=== PATIENT | male | born 1960 | race Hispanic/Latino ===

== ENCOUNTER 2017-07-30 06:14 | Day surgery (SDC) | payer BC ==
[2017-07-25 11:56] VITALS: BMI 26.9
[2017-07-30] MEDS ORDERED: Lidocaine 2% Inj (20ml) ONE (06:46)
[2017-07-30] MEDS ORDERED: Midazolam 2 MG/2 ML VIAL ONE ×2 (06:47→07:03)
[2017-07-30] MEDS ORDERED: Phenylephrine 10 mg/ml Inj ONE (06:47)
[2017-07-30] MEDS ORDERED: Nitroglycerin 50mg in D5W 0 MG/0 ML BOTTLE IV ONE (06:48)
[2017-07-30] MEDS ORDERED: Iodixanol 320 MG/ML 200 ML BOTTLE IV ONE (06:48)
[2017-07-30] MEDS ORDERED: Iodixanol 320 MG/ML 100 ML BOTTLE IV ONE (06:48)
[2017-07-30] MEDS ORDERED: Iohexol 350mgl/ml 50 ML ONE (06:48)
[2017-07-30 07:11] LABS: BASO # 0.04 K/mm3 (0.0-2.0); BASO % 0.5 % (0.0-3.0); EOS # 0.2 (0.0-0.7); EOS % 2.8 % (1.5-5.0); GRAN # 4.15 (1.4-6.5); GRAN % 56.4 % (50.0-68.0); HEMOGLOBIN 15.2 g/dL (14.0-18.0); LYMPH # 2.1 (1.2-3.4); LYMPH % 28.9 % (22.0-35.0); MEAN CORPUSCULAR HEMOGLOBIN 31.2 pg (25.0-35.0); MEAN CORPUSCULAR HGB CONC 34.3 g/dl (31.0-37.0); MEAN PLATELET VOLUME 9.5 fl (7.0-11.0); MONO # 0.8 (0.1-0.6); MONO % 11.4 % (1.0-6.0); RBC 4.87 10^6/uL (3.5-6.1); RED CELL DISTRIBUTION WIDTH 13.4 % (11.5-14.5); WHITE BLOOD COUNT 7.4 10^3/ul (4.5-11.0)
[2017-07-30 08:27] VITALS: TEMP 97.7
[2017-07-30] MEDS ORDERED: Sodium Chloride 0.9% 1,000 ML IV SCH (08:30)
--- NOTE | 2017-07-30 10:21 | CARDCATH ---
PROCEDURE DATE: 07/30/2017 HISTORY: The patient is a 56-year-old male with a documented history of atherosclerosis as well as the sinus Valsalva aneurysm who presents with an abnormal stress test with new defects in the apex. Cardiac catheterization was recommended. PROCEDURE: Left heart catheterization with coronary arteriography and left ventriculogram as well as supra-aortic valvular injection. The right femoral artery was cannulated with a 6-[place] sheath. There were no complications. I performed moderate sedation which included the presence of an independent trained observer that assisted in monitoring the patient's level of consciousness and physiologic status. After administration of fentanyl and Versed, my intra-service time was 15 minutes. The findings on catheterization revealed right dominant circulation. The RCA revealed intimal irregularities without significant stenosis. The left main artery was unremarkable. The LAD and diagonal vessels revealed intimal irregularities without critical lesions. The circumflex artery and obtuse marginal branch revealed intimal irregularities without significant stenosis. Supraaortic valvular injection revealed a dilated ascending aorta, no aortic insufficiency was noted. LV function was viewed in the HEARD projection. In the HEARD projection, wall motion is within normal limits. Estimated ejection fractions between 55%-60%. Angio-Seal was used to close the femoral artery site. The patient tolerated the procedure well. In summary, the procedure revealed intimal irregularities in the coronary tree, but no critical lesions. Normal LV function. Dilated ascending aorta without aortic insufficiency. Given these findings, the patient will need to continue on a cardiac risk reduction program. Sergio Butt MD
[2017-07-30 10:34] VITALS: RESP 20
--- NOTE | 2017-07-30 11:00 | CARD ---
APPROVED REPORT EKG Measurement Heart [id number] ID [id number] <Conclusion> Sinus bradycardia Moderate voltage criteria for LVH, may be normal variant Inferior infarct, age undetermined Abnormal ECG
[2017-07-30 14:31] VITALS: BP 122/70; PULSE 50; O2SAT 96
== END 2017-07-30 14:00 | disposition home or self-care (01) ==
LOC: CATH 06:14
PROVIDERS: ATTEND Internal Medicine Cardiovascular Disease
DX: I20.0 Unstable angina (principal); I10 Essential (primary) hypertension; E78.5 Hyperlipidemia, unspecified
CPT/HCPCS: 36415; 85025; 86850; 86900; 93005; 93458; 93567; 99152; 99153; C1769; C2629; J1644; J2250; J3010; J7040 ×2; Q9966; Q9967